=== PATIENT | male | born 1985 | race Two or more races ===

== ENCOUNTER 2024-08-08 08:53 | Emergency (ER) | payer SELFPAY ==
[~2024-08-08] VITALS: Ht 177.8 cm; Wt 101.7 kg
[2024-08-08] MEDS: LIDOcaine 1% 30ml preserv. free vial IJ ONE (10:16)
--- NOTE | 2024-08-08 11:57 | Physician Documentation ---
History of Present Illness ~ Chief Complaint: Laceration Stated Complaint: EAR LAC Time Seen by MD: 09:27 Mode of Arrival: Dropped Off HPI This is a 39-year-old male who presents with laceration to his left ear after tripping and falling into a fence that had a nail sticking out of it catching his ear, patient reports no other injuries. Patient reports last tetanus shot one year ago. 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 Tetanus Within 5 Years: Yes Medication Reconciliation Allergies: Coded Allergies: No Known Allergies (Unverified , 08/08/24) Scheduled Ciprofloxacin/Ciprofloxa Hcl (Ciprofloxacin Er 500 Mg Tablet), 1 TAB PO Q12H Ibuprofen (Ibuprofen), 1 TAB PO Q8H Past Medical History Past Medical History: No Pertinent History Review of Systems ROS Laceration to left ear as stated above in the HPI, otherwise all systems are reviewed and negative. Physical Exam Vital Signs: Temperature: 98.0, Source: Temporal, Heart Rate: 84, Respiratory Rate: 18, BP: 112/61, Pulse Oximetry: 99, Weight: 101.700 Oxygen Flow Rate: 0 Physical Exam VITALS: Reviewed and as above. GENERAL: Alert, nontoxic appearing, no apparent distress. HEENT: Approximately 3 cm laceration through the entire scapha, antihelix, and helix, 0.5 cm shallow avulsion of anti tragus. Remainder of head atraumatic. PERRLA, EOMI, no borrego sign RESPIRATORY: No increased work of breathing, no respiratory distress, speaking in full clear sentences Procedures Laceration/Wound Repair Laceration : Location: Left ear Length (cm): 3 Anesthesia: Lidocaine Volume Anesthetic (mls): 12 Prep: irrigated by nurse Debrided: minimal Undermining: none Margins: revised Foreign Body: not identified Repaired: skin, subcutaneous, other (Cartilage) Wound Repaired With: sutures Suture Size/Type: 5-0, prolene, other (Single continuous running lock stitch suture) Number of Superficial Sutures: 1 Deep Layer Suture Size/Type: 5-0, vicryl, other (2 figure eight sutures) Number Deep Layer Sutures: 2 Dressing Applied: simple, gauze, other (Pressure wrap) Tolerated Procedure Well?: yes, no complications Procedure Note Auricle block of the left ear utilizing 8 mL of lidocaine without epinephrine achieving good anesthesia of the entire ear, due to length of procedure this was repeated once with 4 mL of lidocaine without epinephrine as patient began reporting some breakthrough discomfort. Cartilage was repaired with two [id number] sutures utilizing 5-0 Vicryl, and skin repaired with a single continuous running lock stitch suture with good approximation. Otherwise patient tolerated procedure well without complications. Progress Results/Orders Results/Orders Orders - JAMAICA BAIG Laceration/I&D Tray Set Up (08/08/24 09:51) Wound Care Orders (08/08/24 09:51) Completed Orders - JAMAICA BAIG Lidocaine 1% 30ml Vial (Xylocaine 1% Via (08/08/24 09:55) Ibuprofen Tablet (Motrin Tablet) (08/08/24 12:05) Vital Signs 08/08/24 08/08/24 08/08/24 08/08/24 08:55 09:11 10:31 11:20 Temp 98.0 Pulse 92 84 Resp 16 16 18 B/P (MAP) 144/79 120/78 (92) 112/61 (78) Pulse Ox 97 98 99 O2 Flow Rate 0 0 08/08/24 12:17 Temp 98.0 Pulse 75 Resp 12 B/P (MAP) 126/76 Pulse Ox 100 Medical Decision Making Findings This 39-year-old male presented with an approximately 3 cm laceration completely through the superior aspect of his left ear after tripping and striking the side of his face on a wooden fence with a nail sticking out of it, additionally on the left ear patient had a 0.5 cm very shallow skin avulsion that was successfully repaired with skin adhesive. Patient reported no other injuries and no other injuries were observed on physical exam. Remainder of physical exam was benign and vital signs were stable. Further imaging was not indicated as patient reported no loss of consciousness, no head pain, no neck pain. The laceration was successfully repaired utilizing subcutaneous and cutaneous sutures. Due to the involvement of the cartilage of the ear patient to be discharged on one-week of prophylactic antibiotics, patient provided careful home care instructions and return to care precautions. Differential Dx:Considerations: Include: Abrasion, Fracture, Hematoma, Neurovascular injury, Retained foreign body, Other (Closed head injury, concus jeremi) Departure Time of Disposition: 11:56 Disposition: 01 HOME / SELF CARE / HOMELESS Impression: Primary Impression: Laceration Condition: Improved Discharge Instructions: Cauliflower Ear, Laceration Care, Adult, [id number], Laceration Care (Skin Glue) Additional Instructions: Keep the area clean and dry, I recommend a pressure dressing to help prevent cauliflower ear from forming, change the dressing to ear daily or sooner when/if it becomes soiled. Please take the prescribed antibiotics until they are all gone. Please follow up in the next few days with your primary care provider for wound recheck. Please return to the emergency department or your choice of medical provider (an urgent care or primary care provider) in seven days for a wound check and suture removal. Please return to the emergency department sooner for any signs of infection such as increased pain or swelling, drainage from the ear, or if you develop a fever. Also return to the emergency department for any other new or worsening concerning symptoms. You may use ibuprofen and or Tylenol as needed for pain. Referrals: NO PRIMARY CARE PROVIDER (PCP) Prescriptions Ibuprofen (Ibuprofen) 800 Mg Tablet 1 TAB PO Q8H for pain for 10 Days, #30 TAB 0 Refills Prov: JAMAICA BAIG 08/08/24 Ciprofloxacin/Ciprofloxa Hcl (Ciprofloxacin Er 500 Mg Tablet) 500 Mg Tbmp.24hr 1 TAB PO Q12H for 5 Days, #10 TAB Prov: JAMAICA BAIG 08/08/24 Education Educated: Patient Educated regarding: diagnosis, treatment, prognosis, need for follow up Signature Scribe Signature: No scribe Attestation: The note accurately reflects work and decisions made by me.MATHEW Leonardo 08/08/24 20:24 JAMAICA BAIG August 08, 2024 11:56
[2024-08-08] MEDS ORDERED: CIPR-20 PO (12:01)
[2024-08-08] MEDS ORDERED: IBUP-1986 PO (12:01)
[2024-08-08] MEDS: ibuprofen tablet 400 MG TABLET PO ONE (12:07)
[2024-08-08 12:17] VITALS: BP 126/76; PULSE 75; RESP 12; TEMP 98; O2SAT 100
== END 2024-08-08 12:10 | disposition home or self-care (01) ==
LOC: ER 08:54
DX: S01.312A Laceration without foreign body of left ear, initial encounter (principal); Z79.1 Long term (current) use of non-steroidal anti-inflammatories (NSAID); W01.0XXA Fall on same level from slipping, tripping and stumbling without subsequent striking against object, initial encounter; Y93.89 Activity, other specified; Y92.89 Other specified places as the place of occurrence of the external cause; Y99.8 Other external cause status
CPT/HCPCS: 12052; 99284; J7030; 12013; A6446; A6449

== ENCOUNTER 2024-08-16 09:19 | Emergency (ER) | payer SELFPAY ==
[~2024-08-16] VITALS: Ht 177.8 cm; Wt 101.6 kg
[~2024-08-16 09:19] MED LIST: IBUP-1986 PO
[2024-08-16 09:20] VITALS: BP 146/83; PULSE 76; RESP 16; TEMP 98; O2SAT 98
--- NOTE | 2024-08-16 10:32 | Physician Documentation ---
History of Present Illness ~ Chief Complaint: Suture Removal Stated Complaint: SUTURE REMOVAL Time Seen by MD: 09:55 OK to notify your PCP?: Yes Source: patient Mode of Arrival: POV Exam Limitations: no limitations HPI 39 y/o male here for suture removal from left ear. Sutures placed here a week ago. No concerns or complaints. Denies pain from area, drainage or redness. Tetanus Within 5 Years: Yes Medication Reconciliation Allergies: Coded Allergies: No Known Allergies (Unverified , 08/08/24) Scheduled Ibuprofen (Ibuprofen), 1 TAB PO Q8H Discontinued Medications Ciprofloxacin/Ciprofloxa Hcl (Ciprofloxacin Er 500 Mg Tablet), 1 TAB PO Q12H Discontinued Reason: Auto Discontinued Past Medical History Past Medical History: No Pertinent History Review of Systems All Other Systems at this time: Reviewed and Negative Physical Exam Vital Signs: Temperature: 98.0, Source: Temporal, Heart Rate: 76, Respiratory Rate: 16, BP: 146/83, Pulse Oximetry: 98, Weight: 101.600 Oxygen Flow Rate: 0 Physical Exam General Appearance: Alert, WD/WN. NAD. HEENT: NCAT, PERRL, EOMI. Neck: Supple, trachea midline. Cardiovascular: RRR. No m/r/g. Lungs: CTAB. Breathing unlabored Extremities: Normal inspection. No edema. Skin: Warm/dry, normal color. LEFT EAR RUNNING SUTURES IN PLACE UPPER THE UPPER HALF OF THE AURICLE AND PINNA. Neurological: Alert and oriented x4, normal gait. Psychiatric: Affect congruent with mood. Procedure Suture/Staple Removal : Location: face Removed without Complications: Yes Steri-Strips applied?: Yes Delayed Suture/Staple Removal: No Tolerated Procedure Well?: yes, no complications Procedure Note RUNNING SUTURE REMOVED Progress Results/Orders Results/Orders Vital Signs 08/16/24 09:20 Temp 98.0 Pulse 76 Resp 16 B/P (MAP) 146/83 Pulse Ox 98 O2 Flow Rate 0 Medical Decision Making Differential Dx:Considerations: Include: Cellulitis, Suture removal, Wound dehiscence Departure Time of Disposition: 10:32 Disposition: 01 HOME / SELF CARE / HOMELESS Impression: Primary Impression: Visit for suture removal Condition: Stable Discharge Instructions: Suture Removal, Care After Additional Instructions: LACERATION IS STILL FRAGILE SO MAKE SURE EAR DOES NOT GET TUGGED ON OR HIT/BUMPED AREA SHOULD BE FULLY HEALED IN ABOUT ANOTHER WEEK Referrals: NO PRIMARY CARE PROVIDER (PCP) Education Educated: Patient Educated regarding: diagnosis, treatment, need for follow up Signature Scribe Signature: X Attestation: TRISHA PARSON August 16, 2024 10:32
== END 2024-08-16 10:48 | disposition home or self-care (01) ==
LOC: ER 09:19
DX: S01.312D Laceration without foreign body of left ear, subsequent encounter (principal); Z79.899 Other long term (current) drug therapy; X58.XXXD Exposure to other specified factors, subsequent encounter
CPT/HCPCS: 99281